=== PATIENT | female | born 1980 | race Caucasian/White ===

== ENCOUNTER 2017-08-31 14:06 | Emergency (ER) | payer SELFPAY ==
[~2017-08-31 14:06] MED LIST: LEXA20TA PO; METF-324 PO
[2017-08-31 14:09] VITALS: BP 159/74; PULSE 84; RESP 20; TEMP 98.5; O2SAT 98
[2017-08-31] MEDS ORDERED: RESP: ALBUTEROL 2.5 MG/IPRATROPIUM 0.5 MG NEB (SCH) NEB ONE (15:00)
--- NOTE | 2017-08-31 15:00 | PD ---
HPI Chief Complaint: Cold / Flu Symptoms Time Seen by Provider: 14:39 Travel History International Travel<30 days: No Contact w/Intl Traveler<30days: No Traveled to known affect area: No History of Present Illness HPI 37-year-old female with history diabetes and asthma presents to the emergency room for evaluation of nonproductive cough, sore throat, congestion for the past week. States over one month ago she had similar symptoms and they eventually went away but returned about one week ago. Cough is the biggest complaint and keeps her up at night. She has no associated fever or chills. No nausea or vomiting. She has been taking [id number] Robitussin without relief in symptoms. States she has been out of her inhaler and diabetes medication for a month because her insurance lapsed. PFSH Past Medical History Depression: Yes High Cholesterol: Yes Diabetes: Yes Migraines: Yes ?: Not Tubal Ligation: Yes Past Surgical History Section: Yes Social History Alcohol Use: No Tobacco Use: Yes Substance Use: No (Denies any abuse Hx; Smokes Black & Milds - Non in 2wks. ) Allergies-Medications (Allergen,Severity, Reaction): Coded Allergies: No Known Allergies (Unverified , 06/28/13) Reported Meds & Prescriptions Reported Meds & Active Scripts Active Ventolin Hfa 18 GM Inh (Albuterol Sulfate) 90 Mcg/Act Aer 2 Puff INH Q6H PRN Tessalon Perles (Benzonatate) 100 Mg Cap 100 Mg PO TID PRN Reported Lexapro (Escitalopram Oxalate) 20 Mg Tab 20 Mg PO DAILY Metformin ER 24 HR (Metformin HCl) 1,000 Mg Tab 1,000 Mg PO BID Review of Systems Except as stated in HPI: all other systems reviewed are Neg Physical Exam Narrative GENERAL: Well-nourished, well-developed patient female in no acute distress. Afebrile. Ambulatory. SKIN: Focused skin assessment warm/dry. HEAD: Normocephalic. EYES: No scleral icterus. No injection or drainage. NECK: Supple, trachea midline. No JVD or lymphadenopathy. ENT: Mucosa pink and moist. No erythema or exudates. No uvular edema. No uvular , palatal, or tonsillar deviation. Airway patent. Nasal turbinates appear normal without nasal blood, purulent drainage or septal hematoma. CARDIOVASCULAR: Regular rate and rhythm without murmurs, gallops, or rubs. RESPIRATORY: Breath sounds equal bilaterally. No accessory muscle use. Bilateral expiratory wheezes. No crackles, rales, or rhonchi appreciated. Data Data Last Documented VS Vital Signs Date Time Temp Pulse Resp B/P (MAP) Pulse Ox O2 Delivery O2 Flow Rate FiO2 08/31/17 16:04 99 21 08/31/17 14:09 98.5 84 20 159/74 (102) Room Air Orders Orders Chest, Pa & Lat (08/31/17 ) Albuterol-Ipratropium Neb (Duoneb Neb) (08/31/17 15:00) Ed Discharge Order (08/31/17 15:41) [facility] Medical Decision Making Medical Screen Exam Complete: Yes Emergency Medical Condition: Yes Medical Record Reviewed: Yes Differential Diagnosis Upper respiratory infection, pneumonia, asthma exacerbation Narrative Course 37-year-old female presents to the emergency room for evaluation of nonproductive cough, congestion, sore throat for the past week. No objective fevers. She is afebrile and well-appearing in the emergency room. There are bilateral expiratory wheezes. No crackles, rales, or rhonchi. No increased work of breathing. Patient has history of asthma but has been out of her inhaler for the past month. X-ray is negative. This is asthma exacerbation caused by upper respiratory infection. She will be given 2 DuoNeb in the emergency room and discharged with prescription for an inhaler and Tessalon Perles. I will avoid steroids because she is diabetic and has been off her metformin and insulin for a month. Patient is stable for outpatient follow-up. She understands and agrees to plan. Diagnosis Primary Impression: Upper respiratory infection Qualified Codes: J00 - Acute nasopharyngitis [common cold] Additional Impression: Asthma Qualified Codes: J45.21 - Mild intermittent asthma with (acute) exacerbation Referrals: Primary Care Physician Departure Forms: Tests/Procedures, Work Release Enter return to work date: Sep 02, 2017 Additional Instructions: Rest and drink plenty of fluids. Take inhaler as directed, as needed for shortness of breath or wheezing. Tessalon Perles as directed, as needed for cough. Follow-up with a primary care physician. Return to the emergency room for worsening symptoms. Scripts Albuterol 18 GM Inh (Ventolin Hfa 18 GM Inh) 90 Mcg/Act Aer 2 PUFF INH Q6H Y for SHORTNESS OF BREATH, #1 INHALER 0 Refills Prov: Yousuf Lebron MD 08/31/17 Benzonatate (Tessalon Perles) 100 Mg Cap 100 MG PO TID Y for COUGH, #15 CAP 0 Refills Prov: Yousuf Lebron MD 08/31/17 Disposition: 01 DISCHARGE HOME Condition: Stable Fátima Boland Aug 31, 2017 15:00
--- NOTE | 2017-08-31 15:36 | RADRPT ---
EXAM DATE/TIME: 08/31/2017 14:55 [facility] COMPARISON: No previous studies available for comparison. INDICATIONS : Cough, congestion and sinus drainage MEDICAL HISTORY : Diabetes mellitus type II. SURGICAL HISTORY : None. ENCOUNTER: Initial ACUITY: 1 month PAIN SCORE: 0/10 LOCATION: Bilateral chest FINDINGS: PA and lateral views of the chest demonstrate the lungs to be symmetrically aerated without evidence of mass, infiltrate or effusion. The cardiomediastinal contours are unremarkable. Osseous structure s are intact. CONCLUSION: No acute disease. Cheng Daigle MD on August 31, 2017 at 15:34 Board Certified Radiologist. This report was verified electronically.
[2017-08-31] MEDS ORDERED: VENTAER INH (15:39)
[2017-08-31] MEDS ORDERED: BENZ100 PO (15:39)
[2017-08-31 16:04] VITALS: O2SAT 99
== END 2017-08-31 16:42 | disposition home or self-care (01) ==
LOC: NEPK 14:06
DX: J45.21 Mild intermittent asthma with (acute) exacerbation (principal); E11.9 Type 2 diabetes mellitus without complications; F32.9 Major depressive disorder, single episode, unspecified; E78.00 Pure hypercholesterolemia, unspecified; J02.9 Acute pharyngitis, unspecified; Z86.69 Personal history of other diseases of the nervous system and sense organs; Z79.84 Long term (current) use of oral hypoglycemic drugs; Z72.0 Tobacco use
CPT/HCPCS: 71046; 94640; 94664; 99283

== ENCOUNTER 2017-10-29 16:24 | Emergency (ER) | payer OTHER ==
[~2017-10-29] VITALS: Ht 170.2 cm; Wt 93.0 kg
[~2017-10-29 16:24] MED LIST changes: +BENZ100 PO; +VENTAER INH
[2017-10-29 16:34] VITALS: BP 126/75; PULSE 88; RESP 20; TEMP 98.7; O2SAT 96
--- NOTE | 2017-10-29 17:46 | PD ---
HPI Chief Complaint: Head Injury Time Seen by Provider: 17:31 Travel History International Travel<30 days: No Contact w/Intl Traveler<30days: No Traveled to known affect area: No History of Present Illness HPI 37-year-old female actually struck the left parietal occipital scalp against a metal pole. No loss of consciousness. She later found white blood in region of her neck and was concerned and arrives here for evaluation. No loss of consciousness. No vomiting. Onset sudden. Pain is slightly worse with palpation. There is a mild throbbing discomfort. She also describes some dizziness. PFSH Past Medical History Depression: Yes High Cholesterol: Yes Diabetes: Yes (TYPE 2) Migraines: Yes ?: Not Tubal Ligation: Yes Past Surgical History Section: Yes Social History Alcohol Use: No Tobacco Use: Yes Substance Use: No (Denies any abuse Hx; Smokes Black & Milds - Non in 2wks. ) Allergies-Medications (Allergen,Severity, Reaction): Coded Allergies: No Known Allergies (Unverified Adverse Reaction, Unknown, 10/29/17) Reported Meds & Prescriptions Reported Meds & Active Scripts Active Ventolin Hfa 18 GM Inh (Albuterol Sulfate) 90 Mcg/Act Aer 2 Puff INH Q6H PRN Tessalon Perles (Benzonatate) 100 Mg Cap 100 Mg PO TID PRN Reported Lexapro (Escitalopram Oxalate) 20 Mg Tab 20 Mg PO DAILY Metformin ER 24 HR (Metformin HCl) 1,000 Mg Tab 1,000 Mg PO BID Review of Systems Except as stated in HPI: all other systems reviewed are Neg Physical Exam Narrative GENERAL: 37 yo F, WNWD, NAD Vital Signs Date Time Temp Pulse Resp B/P (MAP) Pulse Ox O2 Delivery O2 Flow Rate FiO2 10/29/17 16:34 98.7 88 20 126/75 (92) 96 SKIN: Warm and dry. HEAD: Atraumatic. Normocephalic. L parieto-occipital contusion approx 3cm. Trace abrasion without active bleed. EYES: Pupils equal and round. No scleral icterus. No injection or drainage. ENT: No nasal bleeding or discharge. Mucous membranes pink and moist. NECK: Trachea midline. No JVD. CARDIOVASCULAR: Regular rate and rhythm. RESPIRATORY: No accessory muscle use. Clear to auscultation. Breath sounds equal bilaterally. GASTROINTESTINAL: Abdomen soft, non-tender, nondistended. Hepatic and splenic margins not palpable. MUSCULOSKELETAL: Extremities without clubbing, cyanosis, or edema. No obvious deformities. NEUROLOGICAL: Awake and alert. No obvious cranial nerve deficits. Motor grossly within normal limits. Five out of 5 muscle strength in the arms and legs. Normal speech. PSYCHIATRIC: Appropriate mood and affect; insight and judgment normal. Data Data Last Documented VS Vital Signs Date Time Temp Pulse Resp B/P (MAP) Pulse Ox O2 Delivery O2 Flow Rate FiO2 10/29/17 16:34 98.7 88 20 126/75 (92) 96 MDM Medical Decision Making Medical Screen Exam Complete: Yes Emergency Medical Condition: Yes Medical Record Reviewed: Yes Differential Diagnosis Intracranial hemorrhage, contusion, laceration, concussion Narrative Course The patient has no indication for head CT based on the knee head CT rules. Discharge home with Tylenol as needed. Diagnosis Primary Impression: Scalp contusion Qualified Codes: S00.03XA - Contusion of scalp, initial encounter Disposition: DISCHARGE HOME Condition: Stable Fredis Ponce MD Oct 29, 2017 17:46
[2017-10-29] MEDS ORDERED: ACETAMINOPHEN 325 MG TAB PO ONE (18:00)
== END 2017-10-29 17:57 | disposition home or self-care (01) ==
LOC: NEPE 16:24
DX: S00.03XA Contusion of scalp, initial encounter (principal); E11.9 Type 2 diabetes mellitus without complications; F32.9 Major depressive disorder, single episode, unspecified; W22.09XA Striking against other stationary object, initial encounter; Z72.0 Tobacco use; Z79.84 Long term (current) use of oral hypoglycemic drugs
CPT/HCPCS: 99282